=== PATIENT | female | born 1980 | race Caucasian/White ===

== ENCOUNTER 2019-05-22 17:15 | Emergency (ER) | payer MEDICARE, OTHER, SELFPAY ==
[2019-05-22 17:16] VITALS: BP 173/104; PULSE 88; RESP 20; TEMP 36.9; O2SAT 96; BMI 55.5
--- NOTE | 2019-05-22 17:24 | ED.VIS.LOWEX ---
History of Present Illness Chief Complaint: Lower Extremity Injury Informant: Patient Occurred: Yesterday Mechanism/Context: Injury Context: Onset with activity Timing: Continuous Quality of Pain: Aching, Throbbing Current Severity: 6/10 Maximum Severity: 8/10 Associated Symptoms: Negative for: Parasthesia, Weakness, Loss of Funtion Narrative: Patient presents to the emergency department with right knee injury. She states for the past 2 months, she is been having some pain in her right knee. She states the end of the day, she will have a dull ache in the knee. Yesterday, she was working on her farm. She states that she picked up a Rotten Tomatoes and threw it into the field. She states something popped in her knee. She states her knee gave out and she fell to the ground. Since then, she had increasing pain in the knee. States it is difficult to bear weight because of the pain. She tried a knee brace with little improvement. She is been taking ibuprofen but does not seem to be helping. She is never injured this knee before. She has no history of orthopedic surgery. She denies any history of DVT. Prior similar symptoms: No Recent Illness/Hospitalization: No Past Medical History - Allergies and Home Meds Allergies/Adverse Reactions: Allergies clarithromycin [From Biaxin] Allergy (Verified 05/22/19 17:17) Hives tree nut Allergy (Verified 05/22/19 17:17) Hives Primary Care Physician: Leon Roberts DO [STAFF PHYSICIAN] - Prior records reviewed: Yes Past Medical History: - - depression Smoking Status: Current every day smoker Review of Systems General: Denies: Chills, Fever, Sweats Eyes: Denies: Visual changes - bilaterally, Diplopia ENT: Denies: Rhinorrhea, Sore throat Cardiovascular: Denies: Chest pain, Palpitations Respiratory: Denies: Dyspnea, Cough, Dyspnea on exertion Gastrointestinal: Denies: Abdominal pain, Nausea, Vomiting, Diarrhea, Melena, Hematochezia Genitourinary: Denies: Dysuria, Hematuria, Frequency Musculoskeletal: Reports: Arthralgias, Extremity Pain. Denies: Back pain Skin: Denies: Rash, Wounds Neurological: Denies: Headache, Weakness, Numbness Physical Exam Vital Signs/Narrative: Vital Signs Temp Pulse Resp BP Pulse Ox 05/22/19 17:16 98.5 F 88 20 H 173/104 H 96 Inital Vital Signs reviewed: Yes - Extremity Exam Right Knee: Limited ROM - Anterior and posterior drawer are negative. Patient does have pain over the medial meniscus with compression. No laxity of the MCL or LCL. No effusion. Extension is preserved. No pain with small arc range of motion. Normal pulses.. Negative for: Abrasion, Contusion, Deformity, Edema General: Well nourished, Well developed Head: Normocephalic, Atraumatic Eyes: Perrl, EOMI ENT: No Trauma, Moist Mucous Membranes Neck: Nontender, Full ROM Cardiovascular: Regular rate, Regular rhythm, No murmurs Respiratory: No distress, CTA bilaterally, Chest nontender Abdomen: Soft, Nontender, Nondistended, Normal bowel sounds Back: Nontender Skin: Normal color, No rash Neurological: Alert, Oriented x3, Cranial nerves II-XII grossly intact, Normal Strength, Normal Sensation Psychological: Normal affect Diagnostic/Tx/Re-eval - Medical Decision Making Plain films were obtained of the right knee and reviewed by myself. There is no evidence of acute fracture. Joint space is well-maintained. Clinically, based on the patient's mechanism examination I am suspicious for a medial meniscus injury. Patient declined analgesics. She was placed on anti-inflammatories, given an Jordi wrap, and crutches. She will be given outpatient orthopedic follow-up. She is comfortable with this plan of care. Impression 1. Right knee meniscus injury ED Disposition - Plan for ED Patient: Instructions: KNEE PAIN, Meniscus Injury (Possible) Prescriptions: Naproxen [Naprosyn] 500 mg PO BID PRN #20 tab Prescription Printed Referrals: Leon Roberts DO [STAFF PHYSICIAN] -
--- NOTE | 2019-05-22 17:27 | RAD_ITS ---
REPORT STUDY: X-RAY - RIGHT KNEE REASON FOR EXAM: Female, 38 years old. Right knee popped TECHNIQUE: 4 view(s) of the knee. COMPARISON: None. FINDINGS: There is no evidence of fracture or dislocation. Mild tricompartmental degenerative changes are present. There are no radiodense foreign bodies. RAD/Knee 4 or More Views IMPRESSION: No fracture or dislocation. Mild tricompartmental degenerative changes. Electronically Signed: Joey Torres, at 17:48 EDT Tel , Service support ,
--- NOTE | 2019-05-22 17:57 | ED.RN ---
PT GIVEN WRITTEN AND VERBAL DISCHARGE INSTRUCTIONS AND HOME GOING PRESCRIPTIONS. PT VERBALIZES UNDERSTANDING ON FOLLOW UP AND USE OF CRUTCHES AND PORSCHE WRAP. THIS RN CALLED SECURITY TO BRING PT CAR UP ED RAMP. PT DENIES ANY FURTHER QUESTIONS.
== END 2019-05-22 17:59 | disposition home or self-care (01) ==
LOC: ED 17:50
PROVIDERS: Emergency Provider Emergency Medicine
DX: S83.8X1A Sprain of other specified parts of right knee, initial encounter (principal); W19.XXXA Unspecified fall, initial encounter; Y93.9 Activity, unspecified; Y92.79 Other farm location as the place of occurrence of the external cause; Y99.9 Unspecified external cause status; F32.9 Major depressive disorder, single episode, unspecified; F17.200 Nicotine dependence, unspecified, uncomplicated; Z79.899 Other long term (current) drug therapy
CPT/HCPCS: 73564; 99283

== ENCOUNTER → 2019-07-26 12:23 | Outpatient (CLI) | payer MEDICARE, SELFPAY ==
[2019-07-26 10:01] VITALS: BMI 55.5
--- NOTE | 2019-07-26 12:27 | VDLE_ITS ---
Reason For Study: Pain RIGHT GSV is normal. CFV is compressible, spontaneous, phasic, competent and demonstrates normal augmentation. FV is compressible, spontaneous, phasic, competent and demonstrates normal augmentation. POP V is compressible, spontaneous, phasic, competent and demonstrates normal augmentation. T/P Trunk is compressible. PTV is compressible. RT PerV is compressible. Procedure Exam performed in department. A preliminary report was called and/or faxed to [facility]. Interpretation Summary Deep veins of the right lower extremity are patent and compressible segmentally. There is no evidence of right lower extremity deep vein thrombosis. Valvular competence appears intact within the proximal deep venous system on the right . The right great saphenous vein appears patent and compressible segmentally. Ordering Physician: Shawanda Leung Referring Physician: [facility] Performed By: Muriel Leigh RVT
== END ==
PROVIDERS: Referring Provider Orthopaedic Surgery; Visit Provider Orthopaedic Surgery
DX: M79.604 Pain in right leg (principal); S83.241A Other tear of medial meniscus, current injury, right knee, initial encounter; S76.111A Strain of right quadriceps muscle, fascia and tendon, initial encounter; X58.XXXA Exposure to other specified factors, initial encounter; Y93.9 Activity, unspecified; Y92.9 Unspecified place or not applicable; Y99.9 Unspecified external cause status
CPT/HCPCS: 93971

== ENCOUNTER 2019-08-10 05:24 | Day surgery (SDC) | payer OTHER, MEDICARE, SELFPAY ==
[2019-07-26 10:01] VITALS: BMI 55.5
--- NOTE | 2019-07-27 12:07 | HP_ITS ---
I have re-examined the patient. There are no clinical changes since date of exam. Intake Vital Signs 07/26/19 Body Mass Index (BMI) 55.5 07/26/19 Height 5 ft 2 in 07/26/19 Weight: 304 lb 07/26/19 Body Mass Index (BMI) 55.5 Intake Visit Reasons: Knee injury/pain Accompanied by: Self Is patient in pain?: Yes Pain scale (1-10): 8 Allergies clarithromycin [From Biaxin] Allergy (Verified 05/22/19 17:17) Hives tree nut Allergy (Verified 05/22/19 17:17) Hives [facility] Medical History (Updated 07/26/19 @ 10:07 by Makenzie Anthony) High cholesterol (Acute) Pseudotumor cerebri (Acute) Sleep apnea (Acute) Social History (Updated 07/27/19 @ 12:07 by Shawanda Leung DO) Smoking Status: Current every day smoker HPI Knee injury/pain: Surgical H&P: Yes Details: Parts of this documentation were recorded by a scribe, this documentation accurately reflects the service provided and the decisions made by me, Shawanda Leung DO 07/26/19 1787. JACE DWYER is a 38 year old F NEW patient here today for right knee injury. Patient had a injury to her right knee at the begining of April when she was throwing a rotten tomato from her garden and she heard and felt a loud painful pop of her right knee and she has had generalized knee pain. Denies numbness, tingling or other associated symptoms. Has tightness she feels in the calf. Patient has had an MRI which here today on a disc and she has had x-rays in the system. Patient was given crutches but was unable to walk with them so she has not been using them. Denies any bracing. Denies any previous injuries. ROS Musc Reports joint pain, Reports joint swelling, Reports muscle weakness, Denies numbness, Denies radiating pain into limb, Reports stiffness, Denies tingling Skin/Breast Denies redness, Denies lesions, Denies itching, Denies rash Neuro No numbness, No tingling Ortho Exam Right Knee Contralateral Normal: Yes Homans Sign: Yes Knee ROM: Yes ROM-Extension -20 to 0, No ROM-Flexion 0-140 Examination: Yes Med jt line tenderness, Yes Pain with flexion Left Knee Contralateral Normal: No No rales rhonchi wheezing, no abdominal pain, no audible bruits Assessment & Plan Problems 1. Acute medial meniscus tear of right knee, initial encounter S83.241A 2. Tear of lateral meniscus of right knee, current, unspecified tear type, initial encounter S83.281A 3. Strain of right quadriceps, initial encounter S76.111A Plan Personally reviewed the patient's medical history, medications, surgeries and recent exams if available. X-rays were reviewed. There is no obvious fracture, dislocation, or lucency noted. Explained that she has med and lat meniscus tears and a partial quad tear but extensor mechanism is intact. Her treatment options are do nothing, steroid injection, or knee arthroscopy. Reviewed the post op restrictions and limitations. Reviewed the pre-operative plans with the patient. Risks and benefits of the procedure were fully explained, including but not limited to infection, neurovascular injury, continued pain, arthritis, stiffness, need for further surgery, re-injury, DVT, PE, general risks of anesthesia, and loss of limb or life. The patient understands all the risks and does wish to proceed with written consent. Follow up post op or sooner if pain, swelling, numbness or associated symptoms, or concerns develop. All questions answered. Patient in agreement of plan. Orders Orders: Venous Duplex US, Unilateral 07/26/19 S76.111A, S83.241A Coding Level of Care Code Off vis,new,level 3 Diagnoses Acute medial meniscus tear of right knee, initial encounter S83.241A ??Encounter type: initial encounter Tear of lateral meniscus of right knee, current, unspecified tear type, initial encounter S83.281A ??Encounter type: initial encounter ??Meniscus tear of knee type: unspecified type Strain of right quadriceps, initial encounter S76.111A ??Encounter type: initial encounter 07/27/19 1207 <Electronically signed by Shawanda benavidez DO> Date _ Shawanda Leung DO
[2019-08-10] VITALS (11 sets, daily range): BP systolic 117–158; BP diastolic 68–93; PULSE 79–107; RESP 16–24; TEMP 36.6–37.5; O2SAT 89–98; BMI 55.9
[2019-08-10] MEDS: Lactated Ringers 1,000 ML 100 ML IV ×2 (06:07→09:40)
[2019-08-10] MEDS: Cefazolin 2 GM in 0.9% Normal Saline 100 ML IV (07:33)
[2019-08-10] MEDS: Epinephrine (1 mg/ml) 1 MG/ML VIAL (07:50)
[2019-08-10] MEDS: Mupirocin Ointment 22gm Tube 1 APPLIC (07:58)
[2019-08-10] MEDS: Bupiv/Epi 0.25% 30 ML Vial (08:24)
--- NOTE | 2019-08-10 08:26 | DCINST_ITS ---
Discharge Diet: No Restrictions - wbat right leg, remove dressings in 4 days and apply bandaids to incision sites and may get incision wet at that time, call with concerns, follow up in 2 weeks , ankle Pumps, Ice, Elevate operative extremity Discharge Activity: May Not Drive May shower in (days): 1 Ice area for (Minutes): 20 - Every hour while awake. Weight Bearing Status: Weight bearing as tolerated Keep extremity elevated above heart level: Operative Extremity Call your doctor if your incision/area has: Continuous Slow Oozing, Sudden Increased Bleeding, Increased Pain/ Swelling, Increased Redness, Foul Smelling Discharge Call your doctor if you observe: Fever of 101 or Higher, Coldness, Increased Pain, Numbness or Tingling, Change in Color, Calf discomfort Allergies/Adverse Reactions: Allergies clarithromycin [From Biaxin] Allergy (Verified 08/10/19 05:46) Hives tree nut Allergy (Verified 08/10/19 05:46) Hives Medications to take at Discharge Albuterol Inhaler [Ventolin Hfa (SP)] 1 - 2 puff INHALATION Q6H PRN PRN 08/07/19 Bupropion HCl 100 mg PO DAILY 08/07/19 Escitalopram Oxalate [Lexapro] 20 mg PO DAILY 08/07/19 Prazosin HCl [Minipress] 2 mg PO QHS 08/07/19 Ranitidine [Zantac] 1 tab PO PRN PRN 08/07/19 Simvastatin 40 mg PO QHS 08/07/19 Oxycodone HCl/Acetaminophen [Percocet 5/325] 1 - 2 tablet PO Q6H PRN PRN 5 Days #28 tablet 08/10/19 The following prescriptions were given: Oxycodone HCl/Acetaminophen [Percocet 5/325] 1 - 2 tablet PO Q6H PRN PRN 5 Days #28 tablet PRN Reason: Pain Transmission Status: Received by [facility] Phys[facility] [Primary Care Provider] - Test Results: Test results from this visit will be discussed in further detail at your follow- up appointment, if applicable. Please Follow Up With: Shawanda Leung, DO - [phone]
--- NOTE | 2019-08-10 08:27 | PCM.OPRPT ---
Report of Operation Date of Procedure: 08/10/19 Pre-Operative Diagnosis: right knee med and lateral meniscus tear, synovitis, osteoarthritis, Post-Operative Diagnosis: same Surgery/Procedure Performed:: sark, pmm, plm. extensive synovectomy, patella chondroplasty, trochlea chondroplasty dolly operator: Lm Hoffman Type of Anesthesia:: General Anesthesiologist: Tal Tellez Replaced: 700cc lr Description of Procedure: In the context of preop note Patient is a 39-year-old female known to me in the office. Sustained a twisting injury to her right knee continued pain MRI confirms medial lateral meniscus tears as well as arthritis. Risk benefits alternatives were discussed the patient. Risks including but not limited to blood loss, blood clot, infection, neurovascular, failure procedure, loss of life and loss of limb. Patient is aware would like to proceed with right knee arthroscopy repair as indicated. Operative note Patient seen and examined preoperative holding area. Right leg was marked. Patient brought to the operating placed supine on the operating table. Signed, anesthesia, antibiotics were administered the right leg was prepped and draped in usual sterile fashion with tourniquet around her upper thigh. All bony problems well-padded SCDs placed on her contralateral limb as well as a Laci stocking. We then marked out our bony prominences for portal placement the right leg was then elevated exsanguinated and triggers rates to 300. Timeout was performed. We then used an 18-gauge spinal needle to ensure the level of our lateral portal as she she was obese. We then used an 11 blade creator lateral portal. Begin a diagnostic arthroscopy. Patient had grade 3 change and grade 2 changes throughout her patella and trochlea she had thinning throughout she had a 1 x 2 cm in rate for change the inferior pole of the trochlea as well. We then created an anterior medial portal under direct visualization. She had extensive synovitis made visualizing her joint difficult this was resected with a shaver. We also resected back the unstable cartilage pieces on the patella as well as the trochlea. Due to the extensive nature of the cartilage loss we did not perform a microfracture. We removed the medial medial joint line she had a posterior horn unstable medial meniscus tear this was resected with combination of a shaver and a basket. We then reinserted the probe to ensure that we had a stable mid medial meniscus remaining which we did have. Patient also had grade 3 changes throughout her entire medial tibial plateau. ACL and PCL present within the notch. Her lateral femoral condyle was intact and unstable tear after probing posterior horn of the of the lateral meniscus. Patient is a 39-year-old female known to me in the office. Sustained a twisting injury to her right knee continued pain MRI confirms medial lateral meniscus tears as well as arthritis. Risk benefits alternatives were discussed the patient. Risks including but not limited to blood loss, blood clot, infection, neurovascular, failure procedure, loss of life and loss of limb. Patient is aware would like to proceed with right knee arthroscopy repair as indicated. Operative note Patient seen and examined preoperative holding area. Right leg was marked. Patient brought to the operating placed supine on the operating table. Signed, anesthesia, antibiotics were administered the right leg was prepped and draped in usual sterile fashion with tourniquet around her upper thigh. All bony problems well-padded SCDs placed on her contralateral limb as well as a Laci stocking. We then marked out our bony prominences for portal placement the right leg was then elevated exsanguinated and triggers rates to 300. Timeout was performed. We then used an 18-gauge spinal needle to ensure the level of our lateral portal as she she was obese. We then used an 11 blade creator lateral portal. Begin a diagnostic arthroscopy. Patient had grade 3 change and grade 2 changes throughout her patella and trochlea she had thinning throughout she had a 1 x 2 cm in rate for change the inferior pole of the trochlea as well. We then created an anterior medial portal under direct visualization. She had extensive synovitis made visualizing her joint difficult this was resected with a shaver. We also resected back the unstable cartilage pieces on the patella as well as the trochlea. Due to the extensive nature of the cartilage loss we did not perform a microfracture. We removed the medial medial joint line she had a posterior horn unstable medial meniscus tear this was resected with combination of a shaver and a basket. We then reinserted the probe to ensure that we had a stable mid medial meniscus remaining which we did have. Patient also had grade 3 changes throughout her entire medial tibial plateau. ACL and PCL present within the notch. Her lateral femoral condyle was intact and stable probing the lateral horn of the medial of the lateral meniscus. we gently resected the unstable lateral meniscus tear with combination of shaver and basket,
--- NOTE | 2019-08-10 09:02 | SUR.PHASEI ---
SOME EKG CHANGES IN O.R. PER LUIS MARTIN CRNA, BUT STABLE. CHANGED ELECTRODE POSITION, NOW MORE PRONOUNCED, STILL TACHY IN 100'S, HAD ESMOLOL IN O.R. DENIES ANY CHEST, SHOULDER, NECK, BACK, OR JAW PAIN, NO CHEST HEAVINESS, SHORTNESS OF BREATH, OR NAUSEA. 12-LEAD EKG ORDERED.
--- NOTE | 2019-08-10 09:05 | EKG12_ITS ---
Test Reason : RHYTHM CHANGE Blood Pressure : / mmHG Vent. Rate : 091 BPM Atrial Rate : 091 BPM P-R Int : 172 ms QRS Dur : 148 ms QT Int : 422 ms P-R-T Axes : 054 -30 062 degrees QTc Int : 519 ms Normal sinus rhythm Left axis deviation Left bundle branch block Abnormal ECG Confirmed by NIKHIL AGUILAR, COLLETTE ([id number]), editor continuity and script CRUZITO BRAY ([id number]) on 08/14/2019 2:07:39 PM Referred By: Shawanda Leung Confirmed By:COLLETTE TEJEDA MD
[2019-08-10] MEDS: HYDROcodone Bitartrate/Apap 5/325 Tablet PO (10:43)
== END 2019-08-10 11:39 | disposition home or self-care (01) ==
LOC: SDC 05:27 → AC 05:28
PROVIDERS: Referring Provider Orthopaedic Surgery; Visit Provider Orthopaedic Surgery
PROC: (CPT 29882; principal; 2019-08-10 07:10)
DX: S83.241A Other tear of medial meniscus, current injury, right knee, initial encounter (principal); S83.281A Other tear of lateral meniscus, current injury, right knee, initial encounter; M65.861 Other synovitis and tenosynovitis, right lower leg; X50.1XXA Overexertion from prolonged static or awkward postures, initial encounter; Y93.H2 Activity, gardening and landscaping; Y92.9 Unspecified place or not applicable; Y99.9 Unspecified external cause status; E78.00 Pure hypercholesterolemia, unspecified; R32 Unspecified urinary incontinence; G93.2 Benign intracranial hypertension; G47.30 Sleep apnea, unspecified; F32.9 Major depressive disorder, single episode, unspecified; F17.200 Nicotine dependence, unspecified, uncomplicated; E66.01 Morbid (severe) obesity due to excess calories; Z68.43 Body mass index [BMI] 50.0-59.9, adult; Z79.899 Other long term (current) drug therapy
CPT/HCPCS: 01400; 29880; 93005; J7120; J2405

== ENCOUNTER → 2019-12-03 11:22 | Outpatient (CLI) | payer OTHER, MEDICARE, SELFPAY ==
[2019-11-13 08:23] VITALS: BMI 55.9
--- NOTE | 2019-12-03 11:25 | US_ITS ---
STUDY: SUPERFICIAL ULTRASOUND - RIGHT KNEE REASON FOR EXAM: Female, 39 years old. POSSIBLE BAKE CYST- S/P KNEE SURGERY 08/14 TECHNIQUE: A superficial ultrasound was performed with real-time and static perez-scale imaging. COMPARISON: None. FINDINGS: There is no fluid collection or solid mass noted within the soft tissues of the popliteal fossa. US/Ext Non Vasc Limited/Soft Tiss IMPRESSION: No sonographic evidence for Retana''s cyst. Electronically Signed: Joey Medina MD at 22:26 EDT , Service support ,
== END ==
PROVIDERS: Referring Provider Orthopaedic Surgery; Visit Provider Orthopaedic Surgery
DX: M79.661 Pain in right lower leg (principal)
CPT/HCPCS: 76882

== ENCOUNTER 2020-07-02 13:23 | Emergency (ER) | payer OTHER, MEDICARE, SELFPAY ==
[2019-11-13 08:23] VITALS: BMI 55.9
[2020-07-02 13:25] VITALS: BP 142/80; PULSE 73; RESP 14; TEMP 36.8; O2SAT 98; BMI 44.3
[2020-07-02] MEDS: Lidocaine/Epi/Tetracaine 50 ML 1 APPLIC TOPICAL (13:52)
--- NOTE | 2020-07-02 14:05 | ED.VISSUMM ---
- ER Visit Summary Date of Service: 07/02/20 Chief Complaint: Laceration History of Present Illness: The patient is a 39 F who goes to the [facility]. Tetanus is up-to-date. She reports that she was drilling a piece of wood when the wood kicked back and hit her in the face. No loss of consciousness. She not on anticoagulants. She reports that she has a pain that she describes as burning that is 3-10 in severity. She denies any neck or back pain. Review of systems: General: No fever, chills, cold sweats. Cardiovascular: No chest pain, palpitations. Respiratory: No cough, shortness of breath, dyspnea on exertion. Gastrointestinal: No abdominal pain, nausea, vomiting, diarrhea, melena, or hematochezia. Genitourinary: No dysuria, frequency, hematuria. Skin: No rash. Neuro: No headache, numbness, weakness. Physical Examination: Vitals: Stable. Afebrile. Face: Between the bridge of her nose and her right eyebrow there is a 1 cm laceration with no active bleeding. Neck: No vertebral tenderness. Full ROM without difficulty. Cleared by NEXUS criteria. Back: No vertebral tenderness. General: A&O x 3. NAD. Cardiovascular exam: Regular rate and rhythm, no murmur, rub or gallop. Respiratory exam: Chest nontender. No crepitus. Clear to auscultation bilaterally. No wheezes or stridor. Abdominal exam: Soft, nontender, nondistended, normal bowel sounds. No pain in RUQ or LUQ specifically. No peritoneal signs. Extremity: Atraumatic. No pain with range of motion. Emergency Department Course and Treatment: Patient had let placed on this laceration and it was repaired with Dermabond. She tolerated this well. Treatment Plan: Patient be discharged instructed to follow-up with her family doctor as needed. Return to the emergency department for any worsening symptoms. Disposition: To home in improved and stable condition. Impression: 1. Facial laceration, 1 cm, repaired with Dermabond. This note was generated with [employer] dictation software. It may contain incorrect words, spelling, and punctuation that were not noted in review of the chart prior to signing ED Disposition - Plan for ED Patient: Instructions: ED Laceration Facial Skin Glue Referrals: [facility] [Primary Care Provider] - As Needed
[2020-07-02 14:52] VITALS: BP 112/69; PULSE 74; RESP 15; O2SAT 99
== END 2020-07-02 14:53 | disposition home or self-care (01) ==
PROVIDERS: Emergency Provider Emergency Medicine
DX: S01.81XA Laceration without foreign body of other part of head, initial encounter (principal); W20.8XXA Other cause of strike by thrown, projected or falling object, initial encounter; Y93.89 Activity, other specified; Y92.9 Unspecified place or not applicable; Y99.9 Unspecified external cause status; J45.909 Unspecified asthma, uncomplicated; Z79.899 Other long term (current) drug therapy; Z72.0 Tobacco use
CPT/HCPCS: 12011; 99282

== ENCOUNTER 2021-06-02 17:15 | Emergency (ER) | payer OTHER, SELFPAY ==
[2021-06-02 17:16] VITALS: BP 157/95; PULSE 87; RESP 16; TEMP 36.8; O2SAT 96; BMI 48.1
--- NOTE | 2021-06-02 19:43 | EDS_ITS ---
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 Patient states she was exposed to poison lanette about 1 week ago. She was placed on a 5-day course of steroids and she finished it yesterday. Since then she is had worsening swelling, itching and redness. She is taking Benadryl at home with no relief of her symptoms. States her facial swelling is slightly improved today but still very itchy. She denies any new exposures. She denies any difficulty breathing. Denies any nausea or vomiting. No swelling in her mouth. No pain in her mouth, vagina or with urination. No other complaints at this time. Prior similar symptoms: Yes PFSH PFSH Medical History High cholesterol Pseudotumor cerebri Sleep apnea Home Medications albuterol sulfate 1 - 2 puff INHALATION Q6H PRN PRN 08/07/19 [History Last Taken Unknown] bupropion HCl 100 mg PO DAILY 08/07/19 [History Last Taken Unknown] escitalopram oxalate 20 mg PO DAILY 08/07/19 [History Last Taken Unknown] prazosin 2 mg PO QHS 08/07/19 [History Last Taken Unknown] simvastatin 40 mg PO QHS 08/07/19 [History Last Taken Unknown] melatonin 10 mg PO QHS 06/02/21 [History Last Taken Unknown] prednisone See Taper PO DAILY #63 tab 06/02/21 [Rx Last Taken Unknown] Allergy/AdvReac Type Severity Reaction Status Date / Time clarithromycin [From Biaxin] Allergy Hives Verified 06/02/21 17:18 tree nut Allergy Hives Verified 06/02/21 17:18 Social History Smoking Status: Current every day smoker tobacco type: cigarettes ROS ROS ED Constitutional Constitutional ED: Denies chills, fever(s) or malaise Eyes Eyes: Denies blurry vision or loss of vision ENT ENT ED: Reports other Details: Eyelid swelling ; Denies rhinorrhea or sore throat Cardiovascular Cardiovascular: Denies chest pain or dizziness Respiratory/Chest Respiratory/Chest: Denies cough or dyspnea Gastrointestinal Gastrointestinal: Denies nausea or vomiting Genitourinary Genitourinary ED: Denies dysuria or hematuria Musculoskeletal Musculoskeletal: Denies arthralgias or myalgias Integumentary Reports rash; Denies wounds Neurologic Neurologic: Denies focal weakness, headache(s) or weakness Psychiatric Psychiatric: Denies anxiety or behavioral changes EXAM Physical Exam Const Vital Signs: 06/02/21 17:16 Temperature 98.2 F Temperature Source Temporal Pulse Rate 87 Respiratory Rate 16 Blood Pressure 157/95 H Blood Pressure Mean 115 Pulse Ox 96 Oxygen Delivery Method Room Air Positive well nourished and well developed General Appearance ED: well developed HEENT Reports TM's clear and moist mucous membranes HEENT Narrative: Mild swelling of the left eyelid with some associated redness Tympanic Membrane ED: Yes TM's clear Eyes PERRL and EOMs intact bilaterally Neck supple and no JVD Neck Narrative: No stridor Chest Wall inspection of chest normal Resp normal respiratory effort and clear to auscultation bilaterally Cardio regular rate, regular rhythm and no murmurs GI normal to inspection, nondistended, normoactive bowel sounds Back/Spine no CVA tenderness Neuro oriented x3 and CN's II-XII intact bilaterally Sensorium / Orientation: alert Psych mental status grossly normal Skin Skin Narrative: Scattered slightly raised erythema over nose with scattered macular papular erythema over the right cheek. Areas of erythema and excoriati ons on abdomen and right lower extremity. Rashes: rashes noted MDM MDM MDM Narrative Medical decision making narrative: Patient evaluated for redness and itching with worsening since last night. She recently finished a burst of prednisone. I suspect she is having a rebound reaction from poison lanette after 2 short course of steroids. Patient is insistent that she just needs a shot in the butt. She is given a dose of IM Kenalog and will be restarted on prednisone taper. She will continue to use [id number] Benadryl as well as calamine lotion for symptomatic relief. She does not have any findings concerning for anaphylaxis and does not require epinephrine. I do not think this is a Badillo- Zeyad syndrome/TENS. Patient is counseled on signs and symptoms requiring return to the emergency room. Patient verbalizes agreement and understand this plan. Patient discharged home in stable and improved condition. Discharge Plan Triage Chief Complaint: Allergic Reaction ED Provider: Mary Turner Dx/Rx/DC Orders Clinical Impression: Allergic contact dermatitis due to urushiol from Eastern poison lanette Instructions: Poison Lanette [facility] Prescriptions: New prednisone 10 mg tablets,dose pack See Taper mg PO DAILY Qty: 63 RF: 0 No Action simvastatin 80 MG tablet 40 mg PO QHS RF: 0 bupropion HCl 100 MG tablet 100 mg PO DAILY RF: 0 prazosin 2 MG capsule 2 mg PO QHS RF: 0 escitalopram oxalate 10 MG tablet 20 mg PO DAILY RF: 0 albuterol sulfate 1 INHALER inhaler 1 - 2 puff inhalation Q6H PRN PRN (Reason: Asthma) RF: 0 melatonin 10 mg Tablet 10 mg PO QHS RF: 0 [facility] - Disposition Disposition: Home, Self Care
[2021-06-02] MEDS: Triamcinolone Acetonide 40 MG/ML Vial IM (19:50)
== END 2021-06-02 20:05 | disposition home or self-care (01) ==
PROVIDERS: Emergency Provider Emergency Medicine
DX: L23.7 Allergic contact dermatitis due to plants, except food (principal); F17.210 Nicotine dependence, cigarettes, uncomplicated; E78.00 Pure hypercholesterolemia, unspecified; Z79.899 Other long term (current) drug therapy
CPT/HCPCS: 96372; 99283

== ENCOUNTER 2021-07-02 15:57 | Emergency (ER) | payer OTHER, SELFPAY ==
[2021-07-02 15:58] VITALS: BP 163/94; PULSE 98; RESP 16; TEMP 36.4; O2SAT 97; BMI 48.1
--- NOTE | 2021-07-02 16:41 | EDS_ITS ---
HPI History of Present Illness Chief Complaint: Bite Narrative Narrative: Patient is a 40-year-old female who states she was holding a kitten yesterday when another cat came up behind her and scared the cat and causing her to bite her in the right second digit. She states she did not think much of this but noticed the area was becoming swollen a few hours later so she tried to squeeze the area. She states she then tried to clean up by injecting a syringe of hydrogen peroxide into the tissue. She states that today she has noticed increased redness swelling and pain and therefore comes in for evaluation. She denies any fevers or history of immunosuppression and states her tetanus status is up-to-date. ROS ROS ED Constitutional Constitutional ED: Denies chills or fever(s) ENT ENT ED: Denies sore throat Cardiovascular Cardiovascular: Denies chest pain Respiratory/Chest Respiratory/Chest: Denies cough or dyspnea Gastrointestinal Gastrointestinal: Denies abdominal pain, diarrhea, nausea or vomiting Genitourinary Genitourinary ED: Denies dysuria Musculoskeletal Musculoskeletal: Reports other Details: Positive right finger pain ; Denies myalgias Integumentary Reports other Details: Positive right finger redness and swelling ; Denies rash Neurologic Neurologic: Denies headache(s) or paresthesias Hematologic/Lymphatic Hematologic/Lymphatic: Denies easy bleeding or easy bruising PFSH [facility] Medical History High cholesterol Pseudotumor cerebri Sleep apnea Home Medications albuterol sulfate 1 - 2 puff INHALATION Q6H PRN PRN 08/07/19 [History Last Taken Unknown] bupropion HCl 100 mg PO DAILY 08/07/19 [History Last Taken Unknown] escitalopram oxalate 20 mg PO DAILY 08/07/19 [History Last Taken Unknown] prazosin 2 mg PO QHS 08/07/19 [History Last Taken Unknown] simvastatin 40 mg PO QHS 08/07/19 [History Last Taken Unknown] melatonin 10 mg PO QHS 06/02/21 [History Last Taken Unknown] prednisone See Taper PO DAILY #63 tab 06/02/21 [Rx Last Taken Unknown] amoxicillin-pot clavulanate [Augmentin] 1 tab PO BID #20 tab 07/02/21 [Rx Last Taken Unknown] hydrocodone-acetaminophen 1 tab PO Q6H PRN 3 Days #12 tab 07/02/21 [Rx Last Taken Unknown] Allergy/AdvReac Type Severity Reaction Status Date / Time clarithromycin [From Biaxin] Allergy Hives Verified 07/02/21 16:00 tree nut Allergy Hives Verified 07/02/21 16:00 Social History Smoking Status: Current every day smoker tobacco type: cigarettes EXAM Physical Exam Const Vital Signs: 07/02/21 15:58 Temperature 97.6 F L Temperature Source Temporal Pulse Rate 98 Respiratory Rate 16 Blood Pressure 163/94 H Blood Pressure Mean 117 Pulse Ox 97 Oxygen Delivery Method Room Air Positive well nourished and well developed General Appearance ED: well developed HEENT Reports moist mucous membranes normocephalic and atraumatic Eyes PERRL and EOMs intact bilaterally Neck full ROM and supple Resp normal respiratory effort and clear to auscultation bilaterally Cardio regular rate and regular rhythm Extremity Extremity Narrative: Right upper extremity is neurovascularly intact; AIN/PIN are intact and normal. There is a small puncture wound to the dorsal aspect of the right index finger over top the proximal phalanx. From this there is mild soft tissue swelling and faint erythema and warmth but no active discharge or lymphangitic streaking. Remainder the exam is normal Neuro oriented x3 and CN's II-XII intact bilaterally Sensorium / Orientation: alert Psych mental status grossly normal Skin no rashes or lesions noted Skin Narrative: Soft tissue changes to the right index finger as documented above MDM MDM MDM Narrative Medical decision making narrative: Patient presented to the ER afebrile she did not have lymphangitic streaking or active discharge. Her tetanus status is currently up-to-date so therefore there is no need to provide this. We discussed an x-ray to make sure there is no foreign body patient has no concern for this and does not want it obtained. At this time she does have secondary soft tissue changes to suggest infection and therefore she was placed on Augmentin as she states this was from a cat bite but as she has no signs of systemic infection is safe for discharge. Discharge Plan Triage Chief Complaint: Bite ED Provider: Nelson Mccoy Dx/Rx/DC Orders Clinical Impression: Cat bite Instructions: Animal Bites and Scratches Prescriptions: New amoxicillin-pot clavulanate [Augmentin] 875-125 mg tablet 1 tab PO BID Qty: 20 RF: 0 hydrocodone-acetaminophen 5-325 mg tablet 1 tab PO Q6H PRN (Reason: pain) 3 Days Qty: 12 RF: 0 No Action simvastatin 80 MG tablet 40 mg PO QHS RF: 0 bupropion HCl 100 MG tablet 100 mg PO DAILY RF: 0 prazosin 2 MG capsule 2 mg PO QHS RF: 0 escitalopram oxalate 10 MG tablet 20 mg PO DAILY RF: 0 albuterol sulfate 1 INHALER inhaler 1 - 2 puff inhalation Q6H PRN PRN (Reason: Asthma) RF: 0 melatonin 10 mg Tablet 10 mg PO QHS RF: 0 prednisone 10 mg tablets,dose pack See Taper mg PO DAILY Qty: 63 RF: 0 [facility] - Disposition Disposition: Home, Self Care
[2021-07-02] MEDS: Amox/Clavulanate 875 MG Tablet PO (16:57)
== END 2021-07-02 17:19 | disposition home or self-care (01) ==
LOC: ED 17:09
PROVIDERS: Emergency Provider Emergency Medicine
DX: S61.230A Puncture wound without foreign body of right index finger without damage to nail, initial encounter (principal); W55.01XA Bitten by cat, initial encounter; Y93.9 Activity, unspecified; Y92.9 Unspecified place or not applicable; Y99.9 Unspecified external cause status; E78.00 Pure hypercholesterolemia, unspecified; G47.30 Sleep apnea, unspecified; F17.210 Nicotine dependence, cigarettes, uncomplicated; Z79.52 Long term (current) use of systemic steroids; Z79.899 Other long term (current) drug therapy
CPT/HCPCS: 99282

== ENCOUNTER 2024-03-19 08:09 | Emergency (ER) | payer OTHER, SELFPAY ==
[2024-03-19 08:10] VITALS: BP 144/87; PULSE 82; RESP 16; TEMP 36.1; O2SAT 97; BMI 45.3
--- NOTE | 2024-03-19 08:40 | EX.ED.DYSGE1 ---
HPI History of Present Illness Chief Complaint: Rash Informant: patient Narrative Narrative: Patient got poison lanette while she was mulching little over a week ago. She states she has a history of being extremely sensitive to it. She got it on her arms, legs, and face. She went to the [facility] and received a prescription for 1 week of prednisone taper, she states that was as long as they were allowed to give me. She finished the taper 3 or so days ago, and she states the lesions have returned and are very itchy. She denies any other systemic symptoms. [facility] Medical History Pseudotumor cerebri Sleep apnea High cholesterol Home Medications ?Medication ?Instructions ?Recorded ?Last Taken ?Type albuterol sulfate 90 mcg/actuation 1 - 2 puff inhalation Q6H PRN PRN 08/07/19 Unknown History aerosol inhaler Asthma bupropion HCl 100 mg tablet 100 mg PO DAILY depression 08/07/19 Unknown History escitalopram oxalate 10 mg tablet 20 mg PO DAILY depression 08/07/19 Unknown History prazosin 2 mg capsule 2 mg PO QHS nightmares 08/07/19 Unknown History simvastatin 80 mg tablet 40 mg PO QHS cholesterol 08/07/19 Unknown History melatonin 10 mg tablet 10 mg PO QHS 06/02/21 Unknown History prednisone 10 mg tablets in a dose See Taper PO DAILY #63 tabs 06/02/21 Unknown Rx pack amoxicillin 875 mg-potassium 1 tab PO BID #20 tabs 07/02/21 Unknown Rx clavulanate 125 mg tablet (Augmentin) hydrocodone-acetaminophen 5-325mg 1 tab PO Q6H PRN pain 3 days #12 07/02/21 Unknown Rx 5mg-325mg tabs Allergy/AdvReac Type Severity Reaction Status Date / Time clarithromycin (From Biaxin) Allergy Hives Verified 03/19/24 08:09 tree nut Allergy Hives Verified 03/19/24 08:09 Social History Smoking Status: Former smoker ROS ROS ED Constitutional Constitutional ED: Denies chills or fever(s) Integumentary Reports pruritus and rash EXAM Physical Exam Const Vital Signs: 03/19/24 08:10 Temperature 97.0 F L Temperature Source Temporal Pulse Rate 82 Respiratory Rate 16 Blood Pressure 144/87 H Blood Pressure Mean 106 Pulse Ox 97 Oxygen Delivery Method Room Air Positive well nourished and well developed General Appearance ED: well developed and NAD HEENT HEENT Narrative: Subtle excoriated vesicle papular lesions in linear distributions on the patient's face without any signs of infection or tenderness. No periorbital swelling. Minimal if any lesions residual on the forearms and lower legs. Eyes PERRL and EOMs intact bilaterally Neck supple Neck Narrative: from Resp normal respiratory effort Neuro oriented x3, CN's II-XII intact bilaterally and no sensory deficits noted Motor Exam: strength 5/5 throughout Psych mental status grossly normal Skin Skin Narrative: Rash consistent with Rhus dermatitis on face MDM MDM MDM Narrative Medical decision making narrative: Patient states she is a diabetic but she watches her blood sugars very closely and her sugar never went higher than 103 while she was on the prednisone. In discussing options she prefers a Kenalog shot. I am giving her 80 mg IM, that should help this through the next 1.5 weeks or so hopefully to resolution she is comfortable with that plan and she will watch her blood sugars closely. 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 Instructions: [facility] Prescriptions: No Action simvastatin 80 MG tablet 40 mg PO QHS bupropion HCl 100 MG tablet 100 mg PO DAILY prazosin 2 MG capsule 2 mg PO QHS escitalopram oxalate 10 MG tablet 20 mg PO DAILY albuterol sulfate 1 INHALER inhaler 1 - 2 puff inhalation Q6H PRN PRN (Reason: Asthma) melatonin 10 mg Tablet 10 mg PO QHS prednisone 10 mg tablets,dose pack See Taper PO DAILY Qty: 63 0RF Taper: Prednisone Taper 60 mg WITH BREAKFAST for 3 Days and 0 Hour 50 mg WITH BREAKFAST for 3 Days and 0 Hour 40 mg WITH BREAKFAST for 3 Days and 0 Hour 30 mg WITH BREAKFAST for 3 Days and 0 Hour 20 mg WITH BREAKFAST for 3 Days and 0 Hour 10 mg WITH BREAKFAST for 3 Days and 0 Hour amoxicillin-pot clavulanate [Augmentin] 875-125 mg tablet 1 tab PO BID Qty: 20 0RF hydrocodone-acetaminophen 5-325 mg tablet 1 tab PO Q6H PRN (Reason: pain) 3 Days Qty: 12 0RF [facility] - As Needed (or ER) Print Language: Slovak Disposition Disposition: Home, Self Care
[2024-03-19 08:42] VITALS: BP 136/80; PULSE 78; RESP 18; TEMP 36.6; O2SAT 98
[2024-03-19] MEDS: Triamcinolone Acetonide 40 MG/ML Vial 80 MG IM (08:44)
== END 2024-03-19 09:02 | disposition home or self-care (01) ==
PROVIDERS: Emergency Provider Emergency Medicine; Visit Provider Emergency Medicine
DX: L23.7 Allergic contact dermatitis due to plants, except food (principal); E11.9 Type 2 diabetes mellitus without complications; E78.00 Pure hypercholesterolemia, unspecified; Z79.899 Other long term (current) drug therapy; Z87.891 Personal history of nicotine dependence
CPT/HCPCS: 96372; 99282

== ENCOUNTER 2024-03-20 10:01 | Emergency (ER) | payer OTHER, SELFPAY ==
[2024-03-20 10:02] VITALS: BP 158/99; PULSE 99; RESP 14; TEMP 36.2; O2SAT 95; BMI 47.8
[2024-03-20 11:54] VITALS: BP 148/79; PULSE 61; RESP 12; TEMP 36.6; O2SAT 99
--- NOTE | 2024-03-20 14:37 | EDS_ITS ---
HPI History of Present Illness Chief Complaint: Eye Problem Narrative Narrative: Patient presents today with history of poison lanette dermatitis. She [facility] and she had rebound of her rash. She states it has been on her face. She was given a option yesterday of extended prednisone taper versus one-time shot of Kenalog 80 mg. She chose the Kenalog. Overnight she had some swelling of her eyelid and still itching around her right eye but her vision is intact this is a pain behind her right eye. She does not have fevers or chills. She states she has been doing Benadryl but she does not know what dose that she is been doing is every 4 hours. She states [facility] and she was told that since she has poison lanette on her face she needs to go to the emergency room. Patient has no trouble swallowing or breathing. She does not have any rashes elsewhere. [facility] Medical History Pseudotumor cerebri Sleep apnea High cholesterol Home Medications ?Medication ?Instructions ?Recorded ?Last Taken ?Type albuterol sulfate 90 mcg/actuation 1 - 2 puff inhalation Q6H PRN PRN 08/07/19 Unknown History aerosol inhaler Asthma bupropion HCl 100 mg tablet 100 mg PO DAILY depression 08/07/19 Unknown History escitalopram oxalate 10 mg tablet 20 mg PO DAILY depression 08/07/19 Unknown History prazosin 2 mg capsule 2 mg PO QHS nightmares 08/07/19 Unknown History melatonin 10 mg tablet 10 mg PO QHS 06/02/21 Unknown History docusate sodium 100 mg capsule 100 mg PO BID 03/20/24 Unknown History Allergy/AdvReac Type Severity Reaction Status Date / Time clarithromycin (From Biaxin) Allergy Hives Verified 03/20/24 10:02 tree nut Allergy Hives Verified 03/20/24 10:02 Social History Smoking Status: Former smoker ROS ROS ED Constitutional Constitutional ED: Denies chills, fever(s) or sweats Eyes Eyes: Denies blurry vision or change in vision ENT ENT ED: Denies ear pain or sore throat Cardiovascular Cardiovascular: Denies chest pain, palpitations or racing heartbeat Respiratory/Chest Respiratory/Chest: Denies cough, dyspnea or sputum Gastrointestinal Gastrointestinal: Denies abdominal pain, constipation, diarrhea, nausea or vomiting Genitourinary Genitourinary ED: Denies dysuria, hematuria or urinary frequency Musculoskeletal Musculoskeletal: Denies arthralgias, myalgias or neck pain Integumentary Reports rash; Denies abscess or Abrasions Neurologic Neurologic: Denies headache(s), paresthesias or weakness Psychiatric Psychiatric: Denies anxiety, depression, suicidal ideation or suicidal thoughts Endocrine Endocrinology: Denies polydipsia or polyuria EXAM Physical Exam Const Vital Signs: 03/20/24 10:02 03/20/24 11:54 Temperature 97.1 F L 98 F Temperature Source Temporal Pulse Rate 99 61 Respiratory Rate 14 12 Blood Pressure 158/99 H 148/79 H Blood Pressure Mean 118 102 Pulse Ox 95 99 Oxygen Delivery Method Room Air Positive well nourished General Appearance ED: NAD HEENT HEENT Narrative: Mild swelling of the right upper eyelid. I am able to retract this and her vision is intact. No pain with extraocular motion. atraumatic and trauma Neck no lymphadenopathy Resp normal respiratory effort and no retractions Cardio regular rate and regular rhythm Neuro oriented x3 and CN's II-XII intact bilaterally Sensorium / Orientation: alert Motor Exam: strength 5/5 throughout Skin no wounds MDM MDM MDM Narrative Medical decision making narrative: Patient presenting with rash. She was counseled that she just had the Kenalog yesterday and she does not need another dose today. I recommended Benadryl 25 mm weekly allergy. I counseled her she could try Pepcid and Samantha as well. I recommend she use ice packs for her swollen eyes which may help with the swelling. She is understanding. Impression: 1. Poison lanette dermatitis Discharge Plan Triage Chief Complaint: Eye Problem ED Provider: Boni Collins Dx/Rx/DC Orders Clinical Impression: Allergic contact dermatitis due to urushiol from [place] poison lanette Instructions: Poison Lanette [facility] Prescriptions: No Action bupropion HCl 100 MG tablet 100 mg PO DAILY prazosin 2 MG capsule 2 mg PO QHS escitalopram oxalate 10 MG tablet 20 mg PO DAILY albuterol sulfate 1 INHALER inhaler 1 - 2 puff inhalation Q6H PRN PRN (Reason: Asthma) melatonin 10 mg Tablet 10 mg PO QHS docusate sodium 100 mg capsule 100 mg PO BID [facility] Provider] - Print Language: Kyrgyz Disposition Disposition: Home, Self Care Discharge Date/Time: 03/20/24 11:56
== END 2024-03-20 11:56 | disposition home or self-care (01) ==
PROVIDERS: Emergency Provider Student in an Organized Health Care Education/Training Program; Visit Provider Student in an Organized Health Care Education/Training Program
DX: L23.7 Allergic contact dermatitis due to plants, except food (principal); H57.11 Ocular pain, right eye; E78.00 Pure hypercholesterolemia, unspecified; G47.30 Sleep apnea, unspecified; Z79.899 Other long term (current) drug therapy; Z87.891 Personal history of nicotine dependence
CPT/HCPCS: 99282